=== PATIENT | male | born 1965 | race Caucasian/White ===

== ENCOUNTER 2017-02-22 01:19 | Inpatient (IN) | payer SELFPAY ==
[~2017-02-22 01:19] MED LIST: ANTIDEPRESSANT; ARIXTRA10 MG/0.8; AUGMENTIN 875-1 EAC2 PO; AUGMENTIN 875-11 TAB PO; BUPROPION HCL150 M3 PO; BUTRANS1 EAC3 TD; CIPRO500 MG PO; CLEOCIN HCL300 MG PO; COUMADIN; COUMADIN1 MG; COUMADIN10 M1 PO; COUMADIN10 MG; COUMADIN10 MG PO; COUMADIN5 M2 PO; COUMADIN5 MG PO; COUMADIN7.5 M1 PO; COUMADIN7.5 MG; CUBICIN500 MG/10 IV; CULTURELLE1 EAC1 PO; DURAGESIC1 EA10 TD; DYNAPEN500 MG; GABAPENTIN300 MG PO; H; HYDROCHLOROTH12.5 M1; HYDROCODON-ACE1 EAC5 PO; INVANZ1 G/VIA1 IV; LASIX20 M1 PO; LASIX40 MG; LASIX40 MG PO; LEVAQUIN500 MG PO; LEVAQUIN750 M1 PO; LEVAQUIN750 MG; LEVAQUIN750 MG PO; LISINOPRIL-HCTZ1 TAB; LISINOPRIL5 MG; LOVENOX120 MG/0.8 SQ; MEDROL4 MG PO; METHYLPREDNISOLO4 M1 PO; MICRO-K 1010 MEQ PO; MOBIC15 M2 PO; MOBIC7.5 MG PO; MORPHINE SULFAT30 M6 PO; MS CONTIN30 M1 PO; NORCO 10/3251 TA1 PO; NORCO 7.5/325 T1 TAB; NORVASC5 MG; OXYCONTIN10 MG PO; OXYCONTIN20 M1 PO; OXYCONTIN30 MG PO; OXYIR5 MG PO; PEN-VEE K500 MG; PENICILLIN V P250 M1 PO; PENICILLIN VK; PEPCID20 M1 PO; PERCOCET 10 MG/1 TA1 PO; PERCOCET 10-321 EACH PO; PLAQUENIL200 MG PO; PREDNISONE20 M1 PO; PROBIOTIC FORM1 EACH PO; SANTYL30 GM; SODIUM CHLORIDE10 M1 FL; SODIUM CHLORIDE20 ML IV; SULFAMYLON SOL250 M1 TOP; SULFAMYLON60 GM TOP; THERMAZENE50 GM AP; TYLENOL325 MG PO; VENLAFAXINE HC225 MG PO; VICODIN ES TABL1 TAB PO; VIIBRYD10 M1 PO; VITAMIN D31000 UNI3 PO; WELLBUTRIN SR150 M2 PO; XANAX0.5 MG; XANAX1 M1 PO; ZITHROMAX500 MG; ZYVOX600 MG PO; [UNRECOGNIZED DRUG - OTHER]
[2017-02-22] MEDS ORDERED: PENICILLIN V P250 M1 PO (01:59)
[2017-02-22] MEDS ORDERED: VIBRAMYCIN100 M1 PO (02:00)
[2017-02-22 02:04] LABS: BASO % 0.1 % (0-2); EOS % 0.7 % (0-7); EOSINOPHIL ABSOLUTE COUNT 0.1 tho/cmm (0.0-0.7); HCT-HEMATOCRIT 31.7 % (36.0-53.5); HGB-HEMOGLOBIN 10.4 gm/dl (13.5-17.0); IMMATURE GRANULOCYTES ABSOLUTE 0.04 tho/cmm (0-0.03); IMMATURE GRANULOCYTES PERCENT 0.3 % (0-0.3); LYMPH % 14.3 % (20-45); LYMPH ABSOLUTE COUNT 2.1 tho/cmm (0.8-4.5); MCHC MEAN CORPUSCULAR HGB CONC 32.8 % (32.0-36.0); MCV (MEAN CELL VOLUME) 85.2 fl (82.0-96.0); MEAN PLATELET VOLUME 8.8 cmc (9.4-12.4); MONO % 8.9 % (0-12); MONOCYTE ABSOLUTE COUNT 1.3 tho/cmm (0.0-1.2); NEUTROPHILS % 75.7 % (40-80); PLATELET COUNT 494 tho/cmm (150-450); RED BLOOD COUNT 3.72 mil/cmm (4.40-5.70); RED CELL DISTRIBUTION WIDTH 14.5 % (12.4-16.4); WHITE BLOOD COUNT 14.6 tho/cmm (4.0-10.0)
[2017-02-22 02:19] LABS: ALB/GLOB RATIO 0.5 (0.8-2.0); ALBUMIN 2.8 g/dl (3.5-5.0); ALKALINE PHOSPHATASE 179 U/L (33-138); ANION GAP 13 mmol/L (0-20); AST/SGOT 27 U/L (10-40); BILIRUBIN,TOTAL 0.8 mg/dl (0.0-1.5); BLOOD UREA NITROGEN 15 mg/dl (6-24); CALCIUM 7.7 mg/dl (8.5-10.5); CARBON DIOXIDE-VENOUS 23 mmol/L (22-32); CHLORIDE 100 mmol/l (96-110); CREATININE 1.17 mg/dl (0.60-1.30); GLUCOSE 104 mg/dL (70-110); POTASSIUM 3.9 mmol/L (3.7-5.1); SODIUM 132 mmol/L (135-145); eGFR VALUE FOR BLACK 84 mL/Min
[2017-02-22 02:23] LABS: INR 5.7 INR (0.9-1.1)
[2017-02-22 02:24] LABS: PROTHROMBIN TIME 69.8 SECONDS (9.0-13.6)
[2017-02-22 02:30] LABS: ALT/SGPT 30 U/L (12-78)
[2017-02-22 03:05] LABS: PROCALCITONIN 0.28 ng/ml (0.05-0.09)
[2017-02-22 14:49] LABS: INR 4.7 INR (0.9-1.1); PROTHROMBIN TIME 57.7 SECONDS (9.0-13.6)
[2017-02-23 06:00] LABS: BASO % 0.2 % (0-2); EOS % 2.1 % (0-7); EOSINOPHIL ABSOLUTE COUNT 0.1 tho/cmm (0.0-0.7); HCT-HEMATOCRIT 27.2 % (36.0-53.5); HGB-HEMOGLOBIN 8.7 gm/dl (13.5-17.0); IMMATURE GRANULOCYTES ABSOLUTE 0.03 tho/cmm (0-0.03); IMMATURE GRANULOCYTES PERCENT 0.5 % (0-0.3); LYMPH % 20.2 % (20-45); LYMPH ABSOLUTE COUNT 1.2 tho/cmm (0.8-4.5); MCH (MEAN CORPUSCULAR HGB) 27.9 pg (28.0-32.0); MCV (MEAN CELL VOLUME) 87.2 fl (82.0-96.0); MEAN PLATELET VOLUME 8.4 cmc (9.4-12.4); MONO % 14.3 % (0-12); MONOCYTE ABSOLUTE COUNT 0.9 tho/cmm (0.0-1.2); NEUTROPHIL ABSOLUTE COUNT 3.8 tho/cmm (1.6-8.0); NEUTROPHIL-AUTOMATED 3.8 tho/cmm (1.6-8.0); NEUTROPHILS % 62.7 % (40-80); PLATELET COUNT 325 tho/cmm (150-450); RED BLOOD COUNT 3.12 mil/cmm (4.40-5.70); RED CELL DISTRIBUTION WIDTH 14.9 % (12.4-16.4)
[2017-02-23 06:09] LABS: WHITE BLOOD COUNT 6.1 tho/cmm (4.0-10.0)
[2017-02-23 06:31] LABS: INR 4.2 INR (0.9-1.1); PROTHROMBIN TIME 50.4 SECONDS (9.0-13.6)
[2017-02-24 05:46] LABS: BASO % 0.2 % (0-2); EOS % 2.3 % (0-7); EOSINOPHIL ABSOLUTE COUNT 0.1 tho/cmm (0.0-0.7); HCT-HEMATOCRIT 28.1 % (36.0-53.5); HGB-HEMOGLOBIN 8.9 gm/dl (13.5-17.0); IMMATURE GRANULOCYTES ABSOLUTE 0.03 tho/cmm (0-0.03); IMMATURE GRANULOCYTES PERCENT 0.5 % (0-0.3); LYMPH % 26.3 % (20-45); LYMPH ABSOLUTE COUNT 1.6 tho/cmm (0.8-4.5); MCH (MEAN CORPUSCULAR HGB) 27.9 pg (28.0-32.0); MCHC MEAN CORPUSCULAR HGB CONC 31.7 % (32.0-36.0); MCV (MEAN CELL VOLUME) 88.1 fl (82.0-96.0); MEAN PLATELET VOLUME 8.4 cmc (9.4-12.4); MONO % 6.9 % (0-12); MONOCYTE ABSOLUTE COUNT 0.4 tho/cmm (0.0-1.2); NEUTROPHIL ABSOLUTE COUNT 3.8 tho/cmm (1.6-8.0); NEUTROPHIL-AUTOMATED 3.8 tho/cmm (1.6-8.0); NEUTROPHILS % 63.8 % (40-80); PLATELET COUNT 344 tho/cmm (150-450); RED BLOOD COUNT 3.19 mil/cmm (4.40-5.70); RED CELL DISTRIBUTION WIDTH 14.9 % (12.4-16.4)
[2017-02-24 05:59] LABS: ANION GAP 12 mmol/L (0-20); BLOOD UREA NITROGEN 10 mg/dl (6-24); CALCIUM 7.2 mg/dl (8.5-10.5); CARBON DIOXIDE-VENOUS 26 mmol/L (22-32); CHLORIDE 106 mmol/l (96-110); CREATININE 0.78 mg/dl (0.60-1.30); GLUCOSE 117 mg/dL (70-110); POTASSIUM 4.2 mmol/L (3.7-5.1); SODIUM 140 mmol/L (135-145); eGFR VALUE FOR BLACK >90 mL/Min
[2017-02-24 06:15] LABS: INR 2.7 INR (0.9-1.1); PROTHROMBIN TIME 32.2 SECONDS (9.0-13.6)
[2017-02-24 15:55] LABS: INR 2.1 INR (0.9-1.1)
[2017-02-24 15:56] LABS: PROTHROMBIN TIME 25.5 SECONDS (9.0-13.6)
[2017-02-25 07:06] LABS: INR 1.7 INR (0.9-1.1)
[2017-02-25 07:32] LABS: PROTHROMBIN TIME 20.2 SECONDS (9.0-13.6)
[2017-02-26 06:20] LABS: BASO % 0.3 % (0-2); EOS % 2.5 % (0-7); EOSINOPHIL ABSOLUTE COUNT 0.2 tho/cmm (0.0-0.7); HCT-HEMATOCRIT 27.4 % (36.0-53.5); HGB-HEMOGLOBIN 8.5 gm/dl (13.5-17.0); IMMATURE GRANULOCYTES ABSOLUTE 0.02 tho/cmm (0-0.03); IMMATURE GRANULOCYTES PERCENT 0.3 % (0-0.3); LYMPH % 33.2 % (20-45); LYMPH ABSOLUTE COUNT 2.1 tho/cmm (0.8-4.5); MCH (MEAN CORPUSCULAR HGB) 27.6 pg (28.0-32.0); MEAN PLATELET VOLUME 8.5 cmc (9.4-12.4); MONO % 9.8 % (0-12); MONOCYTE ABSOLUTE COUNT 0.6 tho/cmm (0.0-1.2); NEUTROPHIL ABSOLUTE COUNT 3.4 tho/cmm (1.6-8.0); NEUTROPHIL-AUTOMATED 3.4 tho/cmm (1.6-8.0); NEUTROPHILS % 53.9 % (40-80); PLATELET COUNT 437 tho/cmm (150-450); RED BLOOD COUNT 3.08 mil/cmm (4.40-5.70); RED CELL DISTRIBUTION WIDTH 14.8 % (12.4-16.4); WHITE BLOOD COUNT 6.3 tho/cmm (4.0-10.0)
[2017-02-26 06:27] LABS: INR 1.4 INR (0.9-1.1); PROTHROMBIN TIME 16.9 SECONDS (9.0-13.6)
[2017-02-27 06:06] LABS: INR 1.2 INR (0.9-1.1); PROTHROMBIN TIME 14.3 SECONDS (9.0-13.6)
[2017-02-28 05:58] LABS: BASO % 0.6 % (0-2); EOS % 2.5 % (0-7); EOSINOPHIL ABSOLUTE COUNT 0.1 tho/cmm (0.0-0.7); HCT-HEMATOCRIT 30.3 % (36.0-53.5); HGB-HEMOGLOBIN 9.2 gm/dl (13.5-17.0); IMMATURE GRANULOCYTES ABSOLUTE 0.01 tho/cmm (0-0.03); IMMATURE GRANULOCYTES PERCENT 0.2 % (0-0.3); LYMPH % 41.5 % (20-45); LYMPH ABSOLUTE COUNT 2.2 tho/cmm (0.8-4.5); MCH (MEAN CORPUSCULAR HGB) 27.5 pg (28.0-32.0); MCHC MEAN CORPUSCULAR HGB CONC 30.4 % (32.0-36.0); MCV (MEAN CELL VOLUME) 90.4 fl (82.0-96.0); MEAN PLATELET VOLUME 8.2 cmc (9.4-12.4); MONO % 9.6 % (0-12); MONOCYTE ABSOLUTE COUNT 0.5 tho/cmm (0.0-1.2); NEUTROPHIL ABSOLUTE COUNT 2.4 tho/cmm (1.6-8.0); NEUTROPHIL-AUTOMATED 2.4 tho/cmm (1.6-8.0); NEUTROPHILS % 45.6 % (40-80); PLATELET COUNT 473 tho/cmm (150-450); RED BLOOD COUNT 3.35 mil/cmm (4.40-5.70); RED CELL DISTRIBUTION WIDTH 14.5 % (12.4-16.4); WHITE BLOOD COUNT 5.2 tho/cmm (4.0-10.0)
[2017-02-28 06:06] LABS: INR 1.1 INR (0.9-1.1); PROTHROMBIN TIME 13.3 SECONDS (9.0-13.6)
[2017-02-28 06:14] LABS: ANION GAP 8 mmol/L (0-20); BLOOD UREA NITROGEN 9 mg/dl (6-24); C-REACTIVE PROTEIN 2.2 mg/dl (0-0.9); CALCIUM 7.9 mg/dl (8.5-10.5); CARBON DIOXIDE-VENOUS 31 mmol/L (22-32); CHLORIDE 103 mmol/l (96-110); CREATININE 0.81 mg/dl (0.60-1.30); GLUCOSE 81 mg/dL (70-110); POTASSIUM 4.2 mmol/L (3.7-5.1); SODIUM 138 mmol/L (135-145); eGFR VALUE FOR BLACK >90 mL/Min
[2017-03-01 05:33] LABS: INR 1.3 INR (0.9-1.1); PROTHROMBIN TIME 14.9 SECONDS (9.0-13.6)
[2017-03-02 06:39] LABS: INR 1.3 INR (0.9-1.1); PROTHROMBIN TIME 14.7 SECONDS (9.0-13.6)
[2017-03-02 06:40] LABS: HGB-HEMOGLOBIN 8.2 gm/dl (13.5-17.0); PLATELET COUNT 443 tho/cmm (150-450)
[2017-03-02] MEDS ORDERED: LEVAQUIN750 M1 PO (16:04)
[2017-03-02] MEDS ORDERED: CYMBALTA60 M1 PO (16:15)
[2017-03-02] MEDS ORDERED: OXYCODONE HCL10 M2 PO (16:15)
[2017-06-29] MEDS ORDERED: SALINE FLUSH IV (11:55)
[2017-06-29] MEDS ORDERED: GENTAMICIN IV (11:56)
== END 2017-03-02 17:35 | disposition home health service (06) | DRG 603 ==
LOC: EDMED 01:19 → EMR2 04:43 → BURN 04:56
PROVIDERS: Emergency Medicine; Family Medicine; Internal Medicine; Internal Medicine Infectious Disease; Registered Nurse; ADMIT Hospitalist
DX: L03.115 Cellulitis of right lower limb (principal); E66.01 Morbid (severe) obesity due to excess calories; I10 Essential (primary) hypertension; I87.2 Venous insufficiency (chronic) (peripheral); I89.0 Lymphedema, not elsewhere classified; Z91.19 Patient's noncompliance with other medical treatment and regimen; B95.61 Methicillin susceptible Staphylococcus aureus infection as the cause of diseases classified elsewhere; B96.4 Proteus (mirabilis) (morganii) as the cause of diseases classified elsewhere; Z86.718 Personal history of other venous thrombosis and embolism; Z86.711 Personal history of pulmonary embolism; Z79.01 Long term (current) use of anticoagulants; Z95.828 Presence of other vascular implants and grafts; G89.4 Chronic pain syndrome; Z79.891 Long term (current) use of opiate analgesic; Z68.31 Body mass index [BMI] 31.0-31.9, adult; Z98.84 Bariatric surgery status; F41.9 Anxiety disorder, unspecified; F32.9 Major depressive disorder, single episode, unspecified; Z59.0 Homelessness; D63.8 Anemia in other chronic diseases classified elsewhere; Z88.2 Allergy status to sulfonamides; Z88.1 Allergy status to other antibiotic agents; Z88.3 Allergy status to other anti-infective agents; Z88.8 Allergy status to other drugs, medicaments and biological substances; Z88.0 Allergy status to penicillin; Z91.040 Latex allergy status; Z87.891 Personal history of nicotine dependence
CPT/HCPCS: C1751; J1650; J1956; J2270; J3370